=== PATIENT | male | born 1965 | race Caucasian/White ===

== ENCOUNTER → 2017-01-11 | Outpatient (REF) | LOC: WSOH 08:05 | DX: Z02.89 Encounter for other administrative examinations (principal) ==

== ENCOUNTER 2018-12-15 12:57 | Emergency (ER) | payer BC ==
[~2018-12-15] VITALS: Ht 175.3 cm; Wt 81.8 kg
[2018-12-15 13:03] VITALS: TEMP 97.6
[2018-12-15] MEDS ORDERED: PULMICORT90 MCG/Act IH (13:21)
[2018-12-15] MEDS ORDERED: VENTOLIN0.09 MG IH (13:21)
[2018-12-15 13:34] LABS: BASO # 0.1 (0.0-0.2); BASO % 0.8 % (0.0-2.0); EOS # 0.1 (0.0-0.7); EOS % 1.9 % (0-4.0); GRAN # 5.1 (1.4-6.5); GRAN % 68.6 % (42.2-75.2); HEMATOCRIT 49.8 % (42.0-52.0); HEMOGLOBIN 17.7 g/dl (13.5-18.0); LYMPH # 1.5 (1.2-3.4); LYMPH % 20.4 % (20.0-51.0); MEAN CELL VOLUME 89 fl (80.0-100.0); MEAN CORPUSCULAR HEMOGLOBIN 32 pg (27.0-31.0); MEAN CORPUSCULAR HGB CONC 36 g/dl (33.0-37.0); MEAN PLATELET VOLUME 10.5 fl (7.4-10.4); MONO # 0.6 (0.1-0.6); MONO % 7.9 % (1.7-9.3); PLATELET COUNT 221 K/mm3 (130-400); RED BLOOD COUNT 5.61 M/mm3 (4.20-5.60); REDCELL DISTRIBUTION WIDTH-CV 12.5 % (11.5-14.5)
[2018-12-15 13:36] LABS: INR 1.1 (0.8-3.0); PROTHROMBIN TIME 12.4 SECONDS (9.7-12.8)
[2018-12-15 13:39] LABS: PARTIAL THROMBOPLASTIN TIME 35.4 SECONDS (26.0-37.0)
[2018-12-15 13:41] LABS: ALANINE AMINOTRANSFERASE 20 U/L (21-72); ALBUMIN 4.2 gm/dL (3.5-5.0); ALKALINE PHOSPHATASE 70 U/L (50-136); ANION GAP 11 mmol/L (7-16); AST,SGOT 27 U/L (15-37); BILIRUBIN,TOTAL 0.8 mg/dL (0.0-1.0); BLOOD UREA NITROGEN 14 mg/dL (9-20); CALCIUM 9.3 mg/dL (8.4-10.2); CARBON DIOXIDE 25 mmol/L (22-30); CHLORIDE 104 mmol/L (98-107); CREATININE, serum 1.08 mg/dL (0.66-1.25); GLUCOSE 112 mg/dL (74-106); POTASSIUM 3.6 mmol/L (3.4-5.0); SODIUM 140 mmol/L (137-145); TOTAL PROTEIN 7.2 gm/dL (6.4-8.2)
[2018-12-15 14:07] LABS: TROPONIN-I < 0.012 ng/mL (0.000-0.035)
[2018-12-15 16:45] VITALS: BP 127/87; PULSE 65
== END 2018-12-15 16:54 | disposition home or self-care (01) ==
LOC: COL.ER 12:57
PROVIDERS: Family Medicine
DX: R07.89 Other chest pain (principal)

== ENCOUNTER → 2018-12-25 | Outpatient (CLI) | payer BC ==
[~2018-12-25] VITALS: Ht 175.3 cm; Wt 87.0 kg
[~2018-12-25] MED LIST: ASPIRIN E.C. 8181 MG PO; BYSTOLIC2.5 MG; PULMICORT90 MCG/Act IH; VENTOLIN0.09 MG IH
[2018-12-25 06:48] VITALS: BP 143/94; PULSE 71
== END ==
LOC: COL.CARD 06:30
DX: R07.9 Chest pain, unspecified (principal); R00.2 Palpitations; I10 Essential (primary) hypertension
CPT/HCPCS: A9500